=== PATIENT | female | born 1960 | race Caucasian/White ===

== ENCOUNTER 2019-08-18 18:12 | Observation (INO) | payer OTHER, SELFPAY ==
[2019-08-18] VITALS (8 sets, daily range): BP systolic 145–176; BP diastolic 91–106; PULSE 69–85; RESP 16–25; TEMP 36.8–36.9; O2SAT 93–97
--- NOTE | ~2019-08-18 | XR_ITS ---
EXAMINATION: XR chest 2V DATE: 08/18/2019 18:53 INDICATION: Cough and cold symptoms with 3-4 days of shortness of breath TECHNIQUE: PA and lateral views of the chest were obtained. COMPARISON: None FINDINGS: The lungs are clear with no focal airspace opacities, pulmonary edema, pleural effusion or pneumothor ax. Prominent right paracardial fat pad. Cardiomediastinal silhouette is normal. Mild thoracic spondy losis. IMPRESSION: 1. No acute cardiopulmonary disease. Reviewed, dictated and finalized at location A. [facility]
--- NOTE | 2019-08-18 18:20 | ECG_ITS ---
Measurements Intervals [place] Rate: 72 P: 61 PA: 165 QRS: 39 QRSD: 91 T: 24 QT: 378 QTc: 415 Interpretive Statements SINUS RHYTHM BORDERLINE T WAVE ABNORMALITY- ANT/INF LEADS BASELINE WANDER- AVF, V3-V6 BORDERLINE ECG Electronically Signed On 08-18-2019 20:05:01 LABOR UTILIZATION SUPERINTENDENT by Cornell Avila D.O.
[2019-08-18 18:32] LABS: Basophils Percent Auto 0.2 % (0.2-1.2); Hematocrit 44.1 % (37.0-47.0); Hemoglobin 13.8 g/dL (12.0-15.0); Immature Granulocyte Absolute 0.06 K/mm3 (0.00-0.031); Immature Granulocyte Percent A 0.6 % (0-0.5); Lymphocytes Percent Auto 24.9 % (18.3-44.2); Mean Corpuscular HGB Conc 31.3 g/dl (32-36); Mean Corpuscular Hemoglobin 25.5 pg (26-34); Mean Corpuscular Volume 81.4 fl (80-100); Mean Platelet Volume 11.1 fl (7.4-10.4); Monocytes Absolute Auto 1.2 K/mm3 (0.1-0.6); Monocytes Percent Auto 12.4 % (2.6-8.5); Neutrophils Percent Auto 61.9 % (45.5-73.1); Platelet Count Result 227 k/mm3 (150-375); Red Blood Count 5.42 M/mm3 (4.2-5.4); Red Cell Distribution Width 16.3 % (11.5-14.5); White Blood Count 9.6 K/mm3 (4.5-10.0)
[2019-08-18 18:42] LABS: Alanine Aminotransferase 32 U/L (4-35); Albumin Level 4.3 g/dL (3.5-5.1); Alkaline Phosphatase 94 U/L (38-126); Aspartate Amino Transferase 29 U/L (14-36); Bilirubin,Total 0.3 mg/dL (0.2-1.3); Blood Urea Nitrogen 14 mg/dL (7-17); Calcium 8.9 mg/dL (8.4-10.2); Carbon Dioxide 27 mmol/L (22-30); Chloride 102 mmol/L (98-107); Estimated Glomerular Filt Rate > 60; Glucose 105 mg/dL (65-105); Sodium 141 mmol/L (137-145)
--- NOTE | 2019-08-18 21:14 | ED.URI ---
HPI - URI/Sore Throat General Chief Complaint: Upper Respiratory Infection Stated Complaint: difficulty breathing Time Seen by Provider: 08/18/19 21:04 Source: patient and RN notes reviewed Mode of arrival: ambulatory Limitations: no limitations History of Present Illness HPI Narrative: A 59 y/o female presents to the ED with constant SOB for the past 3 days. She states that she has a hx of asthma but that his SOB does not feel similar. She reports a associated dry cough. She notes that she saw her PCP for these symptoms 2 days ago and was started on steroids but denies them alleviating her symptoms. She also notes that laying flat aggravates her SOB. She denies any fevers, chills, CP, N/V/D, ABD pain, and any other medical complaints at this time. MD elicited complaint: other (SOB) Pertinent past history: asthma Onset (ago): day(s) (3) Consistency: constant Exacerbating factors: other (laying flat) Relieving factors: other (Steroids) Associated symptoms: cough (dry) Treatments prior to arrival: other (Steroids) Related Data Allergies Allergy/AdvReac Type Severity Reaction Status Date / Time Penicillins Allergy Severe DIFFICULTY Verified 01/25/18 10:30 BREATHING acetaminophen Allergy Unknown Unknown Verified 08/18/19 20:33 carbamazepine Allergy Unknown Unknown Verified 08/18/19 20:33 codeine Allergy Unknown Unknown Verified 08/18/19 21:42 fluticasone Allergy Unknown TONGUE Verified 08/18/19 21:42 SWELLING Hydantoins Allergy Unknown Unknown Verified 08/18/19 20:33 hydrocodone Allergy Unknown Unknown Verified 08/18/19 20:33 morphine Allergy Unknown Unknown Verified 08/18/19 20:33 omeprazole Allergy Unknown Unknown Verified 08/18/19 21:42 phenytoin Allergy Unknown Unknown Verified 08/18/19 20:33 salmeterol Allergy Unknown TONGUE Verified 08/18/19 21:42 SWELLING ANTICONVULS Allergy Unknown Unknown Uncoded 08/18/19 20:33 GASTRO DRUGS Allergy Unknown Unknown Uncoded 08/18/19 20:33 MACROLIDES Allergy Unknown DIARRHEA Uncoded 10/04/08 15:58 Review of Systems Review of Systems: All systems reviewed & are unremarkable except as noted in HPI and below Constitutional: Constitutional: Denies chills, Denies fatigue, Denies fever(s), Denies headache(s) and Denies night sweats Eyes: Eyes: Denies change in vision, Denies loss of vision and Denies other visual disturbances ENT: Denies headache(s), Denies hoarseness, Denies epistaxis, Denies nasal congestion and Denies sore throat Cardiovascular: Cardiovascular: Denies chest pain, Denies leg edema and Denies palpitations Respiratory: Respiratory: Reports cough (dry), Reports dyspnea and Denies wheezing Gastrointestinal: Gastrointestinal: Denies abdominal pain, Denies diarrhea, Denies nausea and Denies vomiting Genitourinary: Genitourinary: Denies hematuria, Denies urinary frequency and Denies dysuria Musculoskeletal: Musculoskeletal: Denies abnormal gait, Denies deformity, Denies joint swelling, Denies muscle weakness and Denies numbness Integumentary/Breasts: Skin/Breast: Denies rash, Denies unusual bruising and Denies wounds Neurologic: Denies abnormal gait, Denies headache(s), Denies focal weakness, Denies loss of vision and Denies numbness Psychiatric: Psychiatric: Reports no additional psychiatric complaints Endocrine: Endocrine: Denies fatigue and Denies palpitations Hematologic/Lymphatic: Hematologic/Lymphatic: Denies easy bleeding and Denies easy bruising Allergic/Immunologic: Allergic/Immunologic: Denies wheezing PMFSH Past Medical History Medical History Asthma DM (diabetes mellitus) GERD (gastroesophageal reflux disease) History of kidney stones Hx: UTI (urinary tract infection) Renal disease Surgical History Surgical History Hx of tubal ligation Previous section Family History Family History
--- NOTE | 2019-08-18 21:44 | PC.NURSE ---
Patient stated that the nurse in triage did a flu test on her earlier today when she arrive. Tech was unable to find the test and document on the patient get the flu test done. patient refused to have another flu test done.
[2019-08-18] MEDS: ALBUTEROL SULFATE NEB 2.5 MG/0.5 ML INH 5 MG INHALATION ×2 (21:55→23:14)
[2019-08-18] MEDS: IPRATROPIUM BR 0.02% INH SOLN 0.5 MG/2.5 ML VIAL INHALATION (21:56)
[2019-08-18 23:20] LABS: Alveolar/Arterial O2 Gradient 44.7 mmHg; Base Excess ABG -1.2 mEq/l (+/-2.0); Fractional Inspired Oxygen 21 %; HCO3 ABG 22.6 mEq/l (22.0-26.0); Oxygen Content ABG 18.4 %vol (16.0-22.0); Oxygen Saturation ABG 92.8 % (95.0-100.0); Oxyhemoglobin 91.4 % THb (90.0-100.0); PCO2 ABG 35.2 mmHg (35.0-45.0); PO2 ABG 62.9 mmHg (80.0-100.0); Total Hemoglobin 14.3 g/dL (12.0-18.0); pH ABG 7.425 (7.350-7.450)
[2019-08-18 23:21] LABS: Device ROOM AIR; Modified Allen's Test Pass; Site Drawn LEFT RADIAL
[2019-08-19] VITALS (16 sets, daily range): BP systolic 145–164; BP diastolic 73–95; PULSE 69–88; RESP 15–22; TEMP 36.4–36.9; O2SAT 94–98; BMI 30.7
--- NOTE | 2019-08-19 00:38 | PM.IMHP ---
H&P: HPI History of Present Illness Chief complaint: exacerbation copd asthma Narrative: This is a 59 year old diabetic female who is known to have asthma and HTN who presented to the hospital with a complaint of an incessant barking dry cough, wheezing, congestion and exertional shortness of breath over the past 3 days. She called her PCP 2 days ago and they called in a script for steroids although her symptoms have persisted. Associted symptoms include sore throat. The patient denies any ear pain, chest pain, nausea, vomiting, abdominal pain, dysuria, hematuria, diarrhea, or rectal bleeding. She has had bronchodilators in the ER tonight but continues to have respiratory symptoms and saturating in the low 90s on ambulation. She denies any other symptoms at this time. Review of Systems Review of Systems: All systems reviewed & are unremarkable except as noted in HPI and below PMFSH Past Medical History Medical History Asthma DM (diabetes mellitus) GERD (gastroesophageal reflux disease) History of kidney stones Hx: UTI (urinary tract infection) Renal disease Surgical History Surgical History Hx of tubal ligation Previous section Family History Family History Father Family history of pancreatic cancer Family history of alcoholism Mother Acute myocardial infarction Hypertension Mother Diabetes mellitus Mother Family history of alcoholism Social History Social History Smoking packs per day: 1 Smoking cigarettes per day: 20.0 Smoking status: Current some day smoker Tobacco type: e-cigarettes Second hand tobacco smoke exposure: No Alcohol intake: current Drinks per week: 3 Substance use: current Substance use type: marijuana Gender identity (if verbalized by the patient): Female Spiritual care concerns: No Agree to blood products: Yes Meds Home Medications and Allergies Home Medications Medication Instructions Recorded Confirmed Type albuterol sulfate 0.63 mg INHALATION QID PRN 08/19/19 08/19/19 History budesonide-formoterol [Symbicort] 2 puff INHALATION Q12H 08/19/19 08/19/19 History fluticasone propionate 2 spray INTRANASAL DAILY 02/28/20 02/28/20 History metoprolol succinate 50 mg PO DAILY 08/19/19 08/19/19 History montelukast 10 mg PO DAILY 08/19/19 08/19/19 History Allergies Allergy/AdvReac Type Severity Reaction Status Date / Time Penicillins Allergy Severe DIFFICULTY Verified 01/25/18 10:30 BREATHING acetaminophen Allergy Unknown Unknown Verified 08/18/19 20:33 carbamazepine Allergy Unknown Unknown Verified 08/18/19 20:33 codeine Allergy Unknown Unknown Verified 08/18/19 21:42 fluticasone Allergy Unknown TONGUE Verified 08/18/19 21:42 SWELLING Hydantoins Allergy Unknown Unknown Verified 08/18/19 20:33 hydrocodone Allergy Unknown Unknown Verified 08/18/19 20:33 morphine Allergy Unknown Unknown Verified 08/18/19 20:33 omeprazole Allergy Unknown Unknown Verified 08/18/19 21:42 phenytoin Allergy Unknown Unknown Verified 08/18/19 20:33 salmeterol Allergy Unknown TONGUE Verified 08/18/19 21:42 SWELLING ANTICONVULS Allergy Unknown Unknown Uncoded 08/18/19 20:33 GASTRO DRUGS Allergy Unknown Unknown Uncoded 08/18/19 20:33 MACROLIDES Allergy Unknown DIARRHEA Uncoded 10/04/08 15:58 Vital Signs Vital Signs - 24 hr 08/18/19 18:16 08/18/19 20:30 08/18/19 20:38 Temperature 36.9 C 36.8 C Pulse Rate 79 85 Respiratory Rate 17 19 Blood Pressure 169/91 H 176/105 H Pulse Oximetry 97 94 95 08/18/19 21:55 08/18/19 22:10 08/18/19 22:34 Temperature Pulse Rate 69 72 76 Respiratory Rate 16 18 24 H Blood Pressure 145/106 H Pulse Oximetry 93 08/18/19 23:17 08/18/19 23:25 Temperature Pulse Rate 77 81 Respiratory Rate 17 25 H B
--- NOTE | 2019-08-19 00:54 | PC.NURSE ---
Patient placed on 2L O2 NC. Patient's O2 saturations began to range from 89%-91%. EDP Brandon notified.
--- NOTE | 2019-08-19 03:07 | ADMGEN ---
This patient, Pastora Moeller, was admitted to 3 [facility] Surg Room 321-01 @ 0204. Patient/family oriented to hospital policies and general routines including ID bracelet, bed and alarms, visiting hours, pain management, procedures, bathroom and other care routines, personal items, smoking policy, room service/diet, and visiting hours. Valuables list has been completed. Information on how to activate the Rapid Response Team has been discussed. Patient/Family are encouraged to report perceived risks to care and to ask questions if they do not understand what they are told or what they should do.
[2019-08-19] MEDS: SODIUM CHLORIDE 0.45% 1,000 ML 100 ML IV CONT ×3 (03:20→22:39)
[2019-08-19] MEDS: IPRATROPIUM BR 0.02% INH SOLN 0.5 MG/2.5 ML VIAL INHALATION ×4 (03:56→21:07)
[2019-08-19 06:04] LABS: Basophils Percent Auto 0.2 % (0.2-1.2); Hematocrit 41.3 % (37.0-47.0); Hemoglobin 13.1 g/dL (12.0-15.0); Immature Granulocyte Absolute 0.06 K/mm3 (0.00-0.031); Lymphocytes Absolute Auto 0.75 K/mm3 (0.9-3.2); Lymphocytes Percent Auto 12.7 % (18.3-44.2); Mean Corpuscular HGB Conc 31.7 g/dl (32-36); Mean Corpuscular Hemoglobin 25.5 pg (26-34); Mean Corpuscular Volume 80.4 fl (80-100); Mean Platelet Volume 11.1 fl (7.4-10.4); Monocytes Absolute Auto 0.5 K/mm3 (0.1-0.6); Monocytes Percent Auto 7.8 % (2.6-8.5); Neutrophils Absolute Auto 4.6 K/mm3 (1.3-6.7); Neutrophils Percent Auto 78.3 % (45.5-73.1); Platelet Count Result 232 k/mm3 (150-375); Red Blood Count 5.14 M/mm3 (4.2-5.4); Red Cell Distribution Width 15.9 % (11.5-14.5); White Blood Count 5.9 K/mm3 (4.5-10.0)
[2019-08-19 06:16] LABS: Blood Urea Nitrogen 12 mg/dL (7-17); Calcium 8.5 mg/dL (8.4-10.2); Carbon Dioxide 28 mmol/L (22-30); Chloride 101 mmol/L (98-107); Estimated CRCL calculation 99 ml/min; Estimated Glomerular Filt Rate > 60; Glucose 262 mg/dL (65-105); Magnesium 1.9 mg/dL (1.6-2.3); Sodium 142 mmol/L (137-145)
[2019-08-19 08:03] LABS: Glucose Point of Care 165 (65-105)
[2019-08-19] MEDS: predniSONE 20 MG TABLET 60 MG PO (08:29)
[2019-08-19] MEDS: METOPROLOL SUCCINATE EXT REL 50 MG TABCR PO (08:29)
[2019-08-19] MEDS: MONTELUKAST SODIUM 10 MG TABLET PO (08:29)
[2019-08-19] MEDS: FAMOTIDINE 20 MG/2 ML VIAL IV PUSH ×2 (08:30→20:26)
--- NOTE | 2019-08-19 11:21 | PM.IMPN ---
Progress Note: A&P Assessment and Plan (1) Asthma exacerbation: Code(s): J45.901 - Unspecified asthma with (acute) exacerbation Status: Acute Assessment and Plan: Admit for observation, Continue bronchodilators and steroid therapy. Cxr shows no pneumonia or chest congestion, hopeful discharge tmorrow. (2) HTN (hypertension) with goal to be determined: Code(s): I10 - Essential (primary) hypertension Status: Chronic Assessment and Plan: stable. Monitor blood pressure. Continue metoprolol. (3) DM (diabetes mellitus): Qualifiers: Diabetes mellitus complication status: without complication Diabetes mellitus custodial insulin use: without custodial use Diabetes mellitus type: type 2 Qualified Code(s): E11.9 - Type 2 diabetes mellitus without complications Code(s): E11.9 - Type 2 diabetes mellitus without complications Status: Chronic Assessment and Plan: Accuchecks, SSI Coverage. Hypoglycemic protocol. Subjective Date/time seen: 08/19/19 11:21 Interval history: 59 year old diabetic female who is known to have asthma and HTN who presented to the hospital with a complaint of an incessant barking dry cough, wheezing, congestion and exertional shortness of breath over the past 3 days. Ongoing cough, pt tried her nebulisers and inhalers at home without any relief. Review of Systems Review of Systems: All systems reviewed & are unremarkable except as noted in HPI and below Respiratory: Respiratory: Reports chest congestion, Reports cough, Reports dyspnea and Reports wheezing Exam Const: General: alert and other (cough ) Nutritional Appearance: overweight Orientation/consciousness: patient oriented x3 HENMT: Head: normal to inspection General nose exam: Normal external nose present Face and sinus: normal facial exam Mouth: Yes Normal oral and palatal mucosa present and Yes oropharynx normal Eyes: Pupils: Equal, round and reactive pupils present EOM: EOMs intact bilaterally Neck: Neck: supple and no JVD Thyroid: thyroid normal Lymphatic: lymphadenopathy not noted Chest: Other: decreased BS no wheezes heard Resp: Effort & Inspection: normal respiratory effort Auscultation: wheezes throughout and diminished lung sounds Cardio: Rate: tachycardic Rhythm: regular rhythm Heart sounds: no murmurs GI: Inspection: normal to inspection Auscultation: normal bowel sounds Skin: General skin exam: normal color and no rashes or lesions noted Neuro: General: patient oriented x3 Cranial nerves: Yes CN's II-XII intact bilaterally and Yes Equal, round and reactive pupils present Speech: normal speech Motor exam (neuro): 5/5 motor strength present throughout Sensory Exam: normal sensation Extrem: General: normal to inspection and no edema Psych: Mental Status: mental status grossly normal Affect: normal affect Objective Data Vital Signs Vital Signs: Vital Signs - 24 hr 08/18/19 18:16 08/18/19 20:30 08/18/19 20:38 Temperature 36.9 C 36.8 C Pulse Rate 79 85 Respiratory Rate 17 19 Blood Pressure 169/91 H 176/105 H Pulse Oximetry 97 94 95 08/18/19 21:55 08/18/19 22:10 08/18/19 22:34 Temperature Pulse Rate 69 72 76 Respiratory Rate 16 18 24 H Blood Pressure 145/106 H Pulse Oximetry 93 08/18/19 23:17 08/18/19 23:25 08/19/19 01:38 Temperature Pulse Rate 77 81 84 Respiratory Rate 17 25 H 15 Blood Pressure 145/74 H Pulse Oximetry 94 08/19/19 02:04 08/19/19 03:10 08/19/19 03:45 Temperature 36.9 C Pulse Rate 81 83 84 Respiratory Rate 20 18 20 Blood Pressure 151/73 H Pulse Oximetry 96 97 08/19/19 03:50 08/19/19 03:55 08/19/19 06:00 Temperature 36.6 C Pulse Rate 84 84 78 Respiratory Rate 20 22 H Blood Pressure 164/95 H Pulse Oximetry 95 98 08/19/19 08:29 08/19/19 09:34 08/19/19 09:41 Temperature Pulse Rate 78 69 72 Respiratory Rate 20 20 Blood Pressure Pulse Oximetry
[2019-08-19 11:22] LABS: Glucose Point of Care 117 (65-105)
[2019-08-19] MEDS: FLUTICASONE PROPIONATE 0.05% NA SPR 16 GM BTL (*BKC) 2 SPRAY NASAL (11:28)
[2019-08-19 17:21] LABS: Glucose Point of Care 208 (65-105)
[2019-08-19 17:21] LABS: Glucose Point of Care 208 (65-105)
[2019-08-19] MEDS: LORAZEPAM 0.5 MG TABLET PO (20:26)
[2019-08-19 20:51] LABS: Glucose Point of Care 180 (65-105)
[2019-08-20] VITALS (9 sets, daily range): BP systolic 162; BP diastolic 98; PULSE 76–91; RESP 18–20; TEMP 36.9; O2SAT 95–98
[2019-08-20] MEDS: IPRATROPIUM BR 0.02% INH SOLN 0.5 MG/2.5 ML VIAL INHALATION ×3 (02:12→12:56)
[2019-08-20 06:24] LABS: Hematocrit 39.8 % (37.0-47.0); Hemoglobin 12.5 g/dL (12.0-15.0); Mean Corpuscular HGB Conc 31.4 g/dl (32-36); Mean Corpuscular Hemoglobin 25.3 pg (26-34); Mean Corpuscular Volume 80.6 fl (80-100); Mean Platelet Volume 11.4 fl (7.4-10.4); Platelet Count Result 212 k/mm3 (150-375); Red Blood Count 4.94 M/mm3 (4.2-5.4); Red Cell Distribution Width 15.9 % (11.5-14.5); White Blood Count 8.6 K/mm3 (4.5-10.0)
[2019-08-20 06:33] LABS: Blood Urea Nitrogen 13 mg/dL (7-17); Calcium 8.6 mg/dL (8.4-10.2); Carbon Dioxide 29 mmol/L (22-30); Chloride 107 mmol/L (98-107); Estimated CRCL calculation 99 ml/min; Estimated Glomerular Filt Rate > 60; Glucose 98 mg/dL (65-105); Potassium 3.5 mmol/L (3.4-5.0); Sodium 141 mmol/L (137-145)
[2019-08-20 07:59] LABS: Glucose Point of Care 82 (65-105)
[2019-08-20] MEDS: predniSONE 20 MG TABLET 60 MG PO (09:22)
[2019-08-20] MEDS: FAMOTIDINE 20 MG/2 ML VIAL IV PUSH (09:22)
[2019-08-20] MEDS: FLUTICASONE PROPIONATE 0.05% NA SPR 16 GM BTL (*BKC) 2 SPRAY NASAL (09:23)
[2019-08-20] MEDS: METOPROLOL SUCCINATE EXT REL 50 MG TABCR PO (09:24)
[2019-08-20] MEDS: MONTELUKAST SODIUM 10 MG TABLET PO (09:24)
[2019-08-20] MEDS: SODIUM CHLORIDE 0.45% 1,000 ML 100 ML IV CONT (10:37)
[2019-08-20 11:45] LABS: Glucose Point of Care 134 (65-105)
--- NOTE | 2019-08-20 13:53 | PM.DS ---
DS: Diagnosis Admitting Diagnosis Admitting Diagnosis: Unspecified asthma with (acute) exacerbation Discharge Diagnosis (1) Asthma exacerbation: Code(s): J45.901 - Unspecified asthma with (acute) exacerbation Status: Acute Assessment and Plan: Pt treated with bronchodilators and steroid therapy. Cxr shows no pneumonia or chest congestion, hopeful discharge today. (2) HTN (hypertension) with goal to be determined: Code(s): I10 - Essential (primary) hypertension Status: Chronic Assessment and Plan: Stable. Monitor blood pressure. Continue metoprolol. (3) DM (diabetes mellitus): Qualifiers: Diabetes mellitus type: type 2 Diabetes mellitus fdc insulin use: without fdc use Diabetes mellitus complication status: without complication Qualified Code(s): E11.9 - Type 2 diabetes mellitus without complications Code(s): E11.9 - Type 2 diabetes mellitus without complications Status: Chronic Assessment and Plan: Accuchecks, SSI Coverage. Hypoglycemic protocol. Pt states she is a diet controlled DM. DS: Summary Time Spent with Patient Time attestation: Total time spent providing and/or coordinating discharge services:38 minutes on day of discharge. Exam Const: General: comfortable and alert Nutritional Appearance: overweight Orientation/consciousness: patient oriented x3 HENMT: Head: normal to inspection General nose exam: Normal external nose present Face and sinus: normal facial exam Mouth: Yes Normal oral and palatal mucosa present and Yes oropharynx normal Eyes: Pupils: Equal, round and reactive pupils present EOM: EOMs intact bilaterally Neck: Neck: supple and no JVD Thyroid: thyroid normal Lymphatic: lymphadenopathy not noted Chest: Other: Good air entry, no wheezes heard Resp: Effort & Inspection: normal respiratory effort Auscultation: wheezes throughout and diminished lung sounds Cardio: Rate: tachycardic Rhythm: regular rhythm Heart sounds: no murmurs GI: Inspection: normal to inspection Auscultation: normal bowel sounds Skin: General skin exam: normal color and no rashes or lesions noted Neuro: General: patient oriented x3 Cranial nerves: Yes CN's II-XII intact bilaterally and Yes Equal, round and reactive pupils present Speech: normal speech Motor exam (neuro): 5/5 motor strength present throughout Sensory Exam: normal sensation Extrem: General: normal to inspection and no edema Psych: Mental Status: mental status grossly normal Affect: normal affect DS: Data Data Completed and Pending Labs on day of discharge: Labs from last 24 hours 08/20/19 08/20/19 08/20/19 11:42 07:52 06:02 WBC RBC Hgb Hct MCV MCH MCHC RDW Plt Count MPV Sodium 141 Potassium 3.5 Chloride 107 Carbon Dioxide 29 BUN 13 Creatinine 0.60 L Estim Creat Clear Calc 99 Estimated GFR > 60 Glucose 98 POC Capillary Glucose 134 H 82 Calcium 8.6 08/20/19 08/19/19 08/19/19 06:02 20:23 17:14 WBC 8.6 RBC 4.94 Hgb 12.5 Hct 39.8 MCV 80.6 MCH 25.3 L MCHC 31.4 L RDW 15.9 H Plt Count 212 MPV 11.4 H Sodium Potassium Chloride Carbon Dioxide BUN Creatinine Estim Creat Clear Calc Estimated GFR Glucose POC Capillary Glucose 180 H 208 H Calcium 08/19/19 17:10 WBC RBC Hgb Hct MCV MCH MCHC RDW Plt Count MPV Sodium Potassium Chloride Carbon Dioxide BUN Creatinine Estim Creat Clear Calc Estimated GFR Glucose POC Capillary Glucose 208 H Calcium Discharge Plan Discharge Attending physician on discharge: Caro Sewell Discharging Clinician: Caro Sewell Anticipated Discharge Date/Time: 08/20/19 13:52 Patient Disposition: Home, Self-Care Activity: as tolerated Diet: diabetic Patient Instructions: Antibiotic Form Stand Alone Form
--- NOTE | 2019-08-20 15:45 | PC.NURSE ---
Patient discharged @1445. Patient left via wheel chair and POV. Patient transported home via family. IV line removed. Belongings list verified, discharge instructions read and patient verbalized understanding. Patient left phone servomechanism assembler in room once discharged. Contact listed was Elsa Anderson, Elsa was called and notified about phone servomechanism assembler. Phone servomechanism assembler is left at the nurses station in bag with patient label attached.
--- NOTE | 2019-08-22 11:43 | PC.NURSE ---
During follow up phone call, patient wanted clarification regarding prednisone. patient taking 60 mg here and was told by the doctor that she would have 60 mg dose starting out at home. discharge orders states 4 mg taper dose pack. patient states that she took 24 mg dose today. Patient still feeling like her breathing is not better yet. I discussed medication with Kae in hospitalist office. She will follow up with patient.
--- NOTE | 2019-08-22 14:42 | PC.NURSE ---
Received call from GIANNI Whelan, regarding patient having ? regarding her prednisone dose. Spoke with Dr. Sewell. She said patient called the floor and requested not such a high dose of prednisone. Dr. Sewell said she called the pharmacy and changed her dose. She will correct her dc summary.
== END 2019-08-20 14:45 | disposition home or self-care (01) ==
LOC: ANHED 08-19 01:00 → ANH3MEDSUR 08-19 10:19
PROVIDERS: Emergency Medicine; Admitting Provider Family Medicine; Emergency Provider Emergency Medicine; PCP Physician Assistant; Visit Provider Family Medicine
DX: J45.901 Unspecified asthma with (acute) exacerbation (principal); J44.9 Chronic obstructive pulmonary disease, unspecified; F17.210 Nicotine dependence, cigarettes, uncomplicated; I10 Essential (primary) hypertension; E11.9 Type 2 diabetes mellitus without complications; K21.9 Gastro-esophageal reflux disease without esophagitis; Z79.899 Other long term (current) drug therapy; Z87.442 Personal history of urinary calculi; Z88.0 Allergy status to penicillin; Z88.8 Allergy status to other drugs, medicaments and biological substances
CPT/HCPCS: 36415; 36600; 71046; 80048; 80053; 82805; 83735; 85025; 85027; 93005; 94640; 96361; 96374; 96375; 96376; 99285; A9270; G0378; J1100; J7512